=== PATIENT | male | born 1980 | race Two or more races ===

== ENCOUNTER 2025-09-20 23:06 | Emergency (ER) | payer OTHER, SELFPAY ==
[2025-09-20 23:08] VITALS: BMI 28.7
[2025-09-20 23:21] VITALS: BP 206/118; PULSE 72; RESP 18; TEMP 36.8; O2SAT 98
--- NOTE | 2025-09-21 00:15 | EDNOTE_ITS ---
ED Wound/Laceration-RME/HPI General Chief Complaint: Wound/Laceration Stated Complaint: LAC TO L 5TH FINGER Time Seen by Provider: 09/20/25 23:43 Arrival date/time: 09/20/25 23:06 45M with no significant PMH presents to ED with large lac on L pinky finger after patient accidentally jammed it in a tractor. Patient has not had a tetanus shot in the past 5 years. Limitations: no limitations Related Data Previous Rx's ?Medication ?Instructions ?Recorded cephalexin 750 mg capsule 750 mg PO TID 7 days #21 cap s 09/21/25 Allergies Allergy/AdvReac Type Severity Reaction Status Date / Time No Known Allergies Allergy Verified 09/20/25 23:11 Review of Systems Review of Systems Systems Reviewed: All systems reviewed, normal except as documented Integumentary/Breasts Skin/Breast: Reports as per HPI and Reports skin pain Past Medical History Social History SMOKING STATUS: Never smoker ED Exam General Limitations: Present no limitations General appearance: Present alert and in no apparent distress Head Head exam: Present atraumatic Neck Neck exam: Present normal inspection, full ROM and trachea midline Chest Chest inspection: Present normal inspection and symmetric chest wall rise Extremities Exam Extremities exam: Present full ROM Expanded Upper Extremity Exam Hand exam: Present full ROM, laceration and skin avulsion (partial; 7 cm in circumference; L pinky) Neurological Exam Neurological exam: Present alert and oriented X3 Psychiatric Psychiatric exam: Present normal affect and normal mood Skin Skin exam: Present warm, dry, intact and normal color Course Quality Measures none Orders Category Date Time Status Set Up Suture Tray STAT Care 09/20/25 23:43 Active Wound Care NOW Care 09/20/25 23:43 Active HYDROcodone*/APAP 5/325 [[place] 5/325] Med 09/20/25 23:47 Discontinued 1 tab PO X1 ONE TET,DIP/PERT AC (Adult)-Tdap [Boostrix Adult (Tdap) Med 09/20/25 23:43 Discontinued Vacc] 0.5 ml IMI .ONCE ONE cephALEXin [Keflex] Med 09/20/25 23:43 Discontinued 500 mg PO X1 ONE hydrALAZINE HCL [Apresoline] Med 09/20/25 23:43 Discontinued 25 mg PO X1 ONE Vital Signs Vital signs: Vital Signs Temperature 98.2 F 09/20/25 23:21 Pulse Rate 72 09/20/25 23:21 Respiratory Rate 18 09/20/25 23:21 Blood Pressure 206/118 H 09/20/25 23:21 Pulse Oximetry (%) 98 09/20/25 23:21 Oxygen Delivery Method Room Air 09/20/25 23:21 O2 at 98% on RA and WNLs Wound / Laceration MDM Narrative MDM Narrative:: 45M with no significant PMH presents to ED with large lac on L pinky finger after patient accidentally jammed it in a tractor. Patient has not had a tetanus shot in the past 5 years. Physical exam reveals large partial skin avulsion of L pinky, around 10 cm in circumference. ROM intact. Patient is afebrile, calm, and alert. Wound cleaned/soaked/irrigated and closed with 16 stitches. Given tdap and ABX prophylaxis given size and location of lac. BP noted to be quite high. Meds and prenatal genetic counselor given for that. Patient data External records reviewed:: None Clinical information provided by:: patient Social determinants that could affect healthcare access:: none Patient has the following chronic illnesses:: none How is presenting disease/condition affected by chronic disease/condition?: no chronic disease Evaluation data The following diagnostics were reviewed and interpreted by me:: other (specify) (none) Lab and/or radiology exams considered but not ordered:: not ordered Interpretation Summary: n/a Medications / Prescriptions Medications or Prescriptions considered but not ordered:: ordered Medication administrations:: Medication Administration History Discontinued Medications Hydrocodone Bitart/Acetaminophen (Hydrocodone/Apap 5/325 Tablet) 1 tab PO X1 ONE Stop: 09/20/25 23:48 Last Admin: 09/21/25 00:56 Dose: 1 tab Documented By: SHELLEY Cephalexin HCl (Cephalexin 250 Mg Capsule) 500 mg PO X1 ONE Stop: 09/20/25 23:44 Last Admin: 09/21/25 00:56 Dose: 500 mg Documented By: SHELLEY Diphtheria/Tetanus/Acell Pertussis (Diphth,Pertuss(Acell),Tet Vac 0.5 Ml Syr- Adult) 0.5 ml IMi .ONCE ONE Stop: 09/20/25 23:44 Last Admin: 09/21/25 00:57 Dose: 0.5 ml Documented By: SHELLEY Hydralazine HCl (Hydralazine Hcl 25 Mg Tablet) 25 mg PO X1 ONE Stop: 09/20/25 23:44 above Consultations Consultation(s) initiated? (list below): No Diagnosis Wound Differential Diagnosis: laceration, abrasion, avulsion of skin and other (HTN) Most likely diagnosis given after review of the tests above:: HTN, skin avulsion and laceration Admission Indicated Admission indicated?: not indicated Admission Request Was there a request for admission?: No Disposition Plan Disposition Plan: Discharge Discharge Attestation Discharge Attestation: The patient and all family members were given an opportunity to ask questions and understood the discharge instructions. Discharge instructions specifically effects, indications for sooner follow up or return to the emergency department, and the expected course of current diagnosis. Patient condition: Stable Discharge Plan Plan Patient Disposition: HOME (Self Care) Discharge Disposition comment: Stable Prescriptions/Referrals Prescriptions/Med Rec: New cephalexin 750 mg capsule 750 mg PO TID 7 Days Qty: 21 0RF Problem List Clinical Impression: Laceration, Avulsion of skin, Hypertension Patient/Caregiver Discharge Instructions Education Materials: ED Hypertension, New (Begin Treatment), ED Laceration, Hand: All Closures Additional Instructions: Please follow-up with PCP within 24-48 hours and return immediately if symptoms worsen. Have stithces removed in about 14 days. See PCP for HTN meds. Print Language: [place] Stand Alone Forms: Patient Portal Info Letter BABAR/LORETTA Supervising Physician JASON Supervising Physician: Dr. Dixon
[2025-09-21] MEDS: HYDROcodone/APAP 5/325 TABLET 1 TAB PO (00:56)
[2025-09-21] MEDS: DIPHTH,PERTUSS(ACELL),TET VAC 0.5 ML SYR- ADULT IMi (00:57)
[2025-09-21 02:10] VITALS: BP 187/89; PULSE 88
== END 2025-09-21 02:30 | disposition home or self-care (01) ==
LOC: SERX 09-21 00:49
PROVIDERS: Emergency Provider Emergency Medicine
DX: S61.217A Laceration without foreign body of left little finger without damage to nail, initial encounter (principal); I10 Essential (primary) hypertension; W45.8XXA Other foreign body or object entering through skin, initial encounter
CPT/HCPCS: 12001; 90471; 90715; 99282; A9270

== ENCOUNTER 2025-10-05 16:32 | Emergency (ER) | payer OTHER, SELFPAY ==
--- NOTE | 2025-10-05 16:41 | PD.EDWOUND ---
ED Wound/Laceration-RME/HPI General Chief Complaint: Wound Recheck / Suture Removal Stated Complaint: SUTURE REMOVAL Time Seen by Provider: 10/05/25 16:37 Arrival date/time: 10/05/25 16:32 RME / HPI RME / HPI narrative: Patient is a 45-year-old male with who denied a past medical history of chronic disease who presented to the emergency room via private vehicle with a chief complaint of suture removal. Patient initially seen on 09/21/2025 in the ER after Left pinky laceration that required 16 stitches. 16-->Stitches removed. Related Data Previous Rx's ?Medication ?Instructions ?Recorded povidone-iodine 10 % topical 1 applic topical QDAY #3,780 mL 10/05/25 solution (First Aid Antiseptic (povidone-iodine)) Allergies Allergy/AdvReac Type Severity Reaction Status Date / Time No Known Allergies Allergy Verified 09/20/25 23:11 Review of Systems Review of Systems Narrative Review of Systems: NO Complains General appearance: NO weight change, NO fatigue, NO weakness, NO fever, NO chills, NO night sweats, No cough Skin: NO rash, NO itching, NO sores, NO moles HEENT: NO Trauma, NO nausea, NO vomiting, NO visual changes, NO blurry vision, NO double vision, NO tinnitus, NO vertigo, NO ear discharge, NO rhinorrhea, NO stuffiness, NO sneezing, NO allergy, NO epistaxis. NO Hoarseness, NO sore throat, NO swollen neck. Cardiac: NO Palpitations, NO dyspnea on exertion, NO orthopnea, NO paroxysmal nocturnal dyspnea, NO edema Respiratory: NO Shortness of Breath, NO Wheezing, NO Cough, NO Sputum, NO hemoptysis GI:NO appetite, NO nausea, NO vomiting, NO dysphagia, NO changes in bowel frequency, NO stool color, NO diarrhea, NO constipation, NO hemetemesis, NO hemorrhoids, NO melena, NO hematechezia, NO abdominal pain, NO jaundice Renal: NO frequency, NO hesitancy, NO urgency, NO hematuria, NO nocturia, NO incontinence MSK: NO muscle weakness, NO gout, NO arthritis, NO muscle stiffness Neuro: NO headaches, NO tremors, NO weakness, NO paralysis, NO seizures, NO loss of consciousness, NO numbness. Hem: NO anemia, NO easy bruising/bleeding, NO petechiae, NO purpura Endo: NO heat/cold intolerance, NO excessive sweating, NO polyuria, NO polydipsia, NO polyphagia, NO thyroid problems, NO diabetes Pysch: NO mood, NO anxiety, NO depression ED Exam Narrative Physical exam: General Appearance: Alert & Oriented X3, well-nourished male who is lying in bed in no acute. NO discharge from laceration repair. Appears dry. No erythema. HEENT: Skull symmetrical and atraumatic. Conjunctivae pin and moist. Pupils equal, round, reactive to light and accommodation (PERRL). External ear without lesion or discharge. Straight, nares patient, mucosa pink, no discharge. Cardio: Normal Rate and Rhythm with S1 and S2 heart sounds. No murmurs or extra heart sounds auscultated. No bruits on carotid auscultation. No peripheral edema or cyanosis. Lungs: Symmetric with good expansion. Chest and back non-tender. Breath sounds vesicular without crackles, wheezing or rhonchi Abdomen: Non-tender, Non-distended, Normal Reactive Bowel Sounds Neuro: Alert, cooperative, oriented to person, place, and time. Speech clear. CN grossly intact. Upper motor strength 5/5 and Lower motor strength 5/5. Sensation intact. Course Quality Measures none Orders Category Date Time Status Bacitracin Oint pkt Med 10/05/25 16:59 Discontinued 1 gm TOP X1 ONE Vital Signs Vital signs: Vital Signs Temperature 98.8 F 10/05/25 16:42 Pulse Rate 80 10/05/25 16:42 Respiratory Rate 18 10/05/25 16:42 Blood Pressure 184/110 H 10/05/25 16:42 Pulse Oximetry (%) 99 10/05/25 16:42 Oxygen Delivery Method Room Air 10/05/25 16:42 Wound / Laceration Patient data External records reviewed:: [facility] previous records Clinical information provided by:: patient Social determinants that could affect healthcare access:: none Patient has the following chronic illnesses:: None How is presenting disease/condition affected by chronic disease/condition?: no chronic disease Evaluation data The following diagnostics were reviewed and interpreted by me:: other (specify) (none, removal of stiches ) Lab and/or radiology exams considered but not ordered:: None Interpretation Summary: Patient is here for removal of 16 stitches after 14 days. Medications / Prescriptions Medications or Prescriptions considered but not ordered:: none Medication administrations:: Medication Administration History Discontinued Medications Bacitracin (Bacitracin Oint 1 Gm Packet) 1 gm TOP X1 ONE Stop: 10/05/25 17:00 Last Admin: 10/05/25 17:13 Dose: Not Given Documented By: LILIA Non-Admin Reason: Patient Refused same as above Consultations Consultation(s) initiated? (list below): No Diagnosis Wound Differential Diagnosis: laceration, abrasion and avulsion of skin Most likely diagnosis given after review of the tests above:: Stitches removed. Admission Indicated Admission indicated?: not indicated Admission Request Was there a request for admission?: No Disposition Plan Disposition Plan: Discharge Discharge Attestation Discharge Attestation: The patient and all family members were given an opportunity to ask questions and understood the discharge instructions. Discharge instructions specifically effects, indications for sooner follow up or return to the emergency department, and the expected course of current diagnosis. Patient condition: Stable Discharge Plan Plan Patient Disposition: HOME (Self Care) Patient condition on transfer: Stable Health Concerns: Instructions: -Please continue all movement as tolerated with your finger -Please apply idodine as needed for the next week as you work outside -Please follow up with your primary care provider within one week of discharge -If your symptoms worsen,please seek immediate medical attention and return to your nearest emergency room -If you do not have a primary care provider, you may follow up at the [facility] at [address], [place] [address], Prescriptions/Referrals Prescriptions/Med Rec: New povidone-iodine [First Aid Antiseptic(povidone)] 10 % solution 1 applic topical QDAY Qty: 3780 0RF Problem List Clinical Impression: Laceration Patient/Caregiver Discharge Instructions Print Language: [place] Stand Alone Forms: Karma Award Info., Patient Portal Info Letter
[2025-10-05 16:42] VITALS: BP 184/110; PULSE 80; RESP 18; TEMP 37.1; O2SAT 99
[2025-10-05 17:16] VITALS: BP 162/92; PULSE 78; RESP 16; TEMP 36.8; O2SAT 98
== END 2025-10-05 17:17 | disposition home or self-care (01) ==
LOC: SERX 17:20
PROVIDERS: Emergency Provider Emergency Medicine
DX: S61.217D Laceration without foreign body of left little finger without damage to nail, subsequent encounter (principal); X58.XXXD Exposure to other specified factors, subsequent encounter
CPT/HCPCS: 99281